=== PATIENT | male | born 1995 | race Caucasian/White ===

== ENCOUNTER 2017-02-06 15:36 | Emergency (ER) | payer MEDICAID ==
[2017-02-06 15:55] VITALS: BP 123/71
--- NOTE | 2017-02-06 16:26 | ER Document Report ---
HPI - HPI Patient complains to provider of: stye Onset: Other - One year Onset/Duration: Persistent Quality of pain: Achy Pain Level: 2 Context: She presents emergency department with complaints of his stye on his left upper eyelid for over a year. Patient reports he's been to the emergency department twice in [place] received eyedrops and eye appointment and stye is still there. He has never followed up with ophthalmology. He denies fever vomiting diarrhea. Denies change in vision. Patient is visiting from [place]. Associated Symptoms: None Exacerbated by: Denies Relieved by: Denies Similar symptoms previously: Yes Recently seen / treated by doctor: No - DERM Skin Color: Normal Past Medical History - General Information source: Patient - Social History Smoking Status: Current Every Day Smoker Cigarette use (# per day): Yes Frequency of alcohol use: None Drug Abuse: None Family History: None Patient has suicidal ideation: No Patient has homicidal ideation: No - Medical History Medical History: Negative Renal/ Medical History: Denies: Hx Peritoneal Dialysis Surgical Hx: Negative Vertical Provider Document - CONSTITUTIONAL Agree With Documented VS: Yes Exam Limitations: No Limitations General Appearance: WD/WN, No Apparent Distress - INFECTION CONTROL TRAVEL OUTSIDE OF THE [place] IN LAST 30 DAYS: No - HEENT HEENT: Atraumatic, Normocephalic, PERRLA - left upper eyelid sty to center of eyelid, erythema, no induration, no pustule. negative: Conjuctival Injection - NECK Neck: Normal Inspection, Supple - RESPIRATORY Respiratory: No Respiratory Distress O2 Sat by Pulse Oximetry: 99 - CARDIOVASCULAR Cardiovascular: Regular Rate - MUSCULOSKELETAL/EXTREMETIES Musculoskeletal/Extremeties: MASHARON FROM - NEURO Level of Consciousness: Awake, Alert, Appropriate Motor/Sensory: No Motor Deficit - DERM Integumentary: Warm, Dry Course - Re-evaluation Re-evalutation: 02/06/17 16:28 Patient instructed to not pack the area and follow-up with ophthalmology. He verbalized understanding. - Vital Signs Vital signs: Temp Pulse Resp BP Pulse Ox 97.8 F 79 16 123/71 99 02/06/17 15:52 02/06/17 15:52 02/06/17 15:52 02/06/17 15:52 02/06/17 15:52 Discharge - Discharge Clinical Impression: relieved blood pressure reading Stye Qualifiers: Laterality: left Eyelid: upper Qualified Code(s): H00.014 - Hordeolum externum left upper eyelid Condition: Stable Disposition: HOME, SELF-CARE Instructions: Eric ([facility] Opthalmology Additional Instructions: *You have been treated for a stye, elevated blood pressure reading *Do not pick the site *Monitor the site for signs of infection such as increasing pain, redness, swelling, warmth *Follow up with a drum plater within 1 week *Return to ED for signs of infection, worsening condition, changes, needs Monitor your blood pressure. Your blood pressure was elevated today. This may be because you were anxious, in pain or because you need medication. It is important to follow up with your primary care provider for full evaluation. Forms: Elevated Blood Pressure Referrals: ALBAN LOCKHART DO [ACTIVE STAFF] - MARLIN MATIAS MD [ACTIVE STAFF] - ROCCO MARTIN MD [ACTIVE STAFF] -
== END 2017-02-06 16:30 | disposition home or self-care (01) ==
LOC: ER 15:36
DX: H00.014 Hordeolum externum left upper eyelid (principal); F17.210 Nicotine dependence, cigarettes, uncomplicated
CPT/HCPCS: 99283